=== PATIENT | male | born 1955 | race Caucasian/White ===

== ENCOUNTER 2022-08-15 13:30 | Outpatient (CLI) | payer MEDICARE, MEDICAID | END 2022-08-15 23:59 | disposition home or self-care (01) | LOC: RAD 13:30 | PROVIDERS: ATTEND Physician Assistant | DX: R13.14 Dysphagia, pharyngoesophageal phase (principal); K21.9 Gastro-esophageal reflux disease without esophagitis | CPT/HCPCS: 74230 ==